=== PATIENT | male | born 1980 | race Caucasian/White ===

== ENCOUNTER 2017-02-07 18:48 | Emergency (ER) | payer BC ==
[2017-02-07 19:01] VITALS: BP 120/66
--- NOTE | 2017-02-07 19:20 | UC ---
Upper Extremity HPI - HPI Summary HPI Summary: 36 female presents with complaints of right shoulder pain/injury that has been on going since an injury that he sustained on 02/04/17. States he was chopping up and folding a boat they were getting rid of when it snapped back hitting him in the back of right shoulder. Went to [facility] where he had an x-ray told it was a sprain and left. [place] he was not treated appropriately. States he is still having pain and is not able to lift his shoulder without pain. Denies numbness/tingling and any other injuries. Bruising and swelling has resolved. Has been wearing sling and taking percocet for pain as needed. Has continued to work and not rested. No ortho referral. No PMHx. - History of Current Complaint Chief Complaint: UCUpperExtremity Stated Complaint: RIGHT SHOULDER INJURY Time Seen by Provider: 02/07/17 19:13 Hx Obtained From: Patient Onset/Duration: Sudden Onset, Lasting Days, Still Present Severity Initially: Moderate Severity Currently: Moderate Pain Intensity: 2 Pain Scale Used: 0-10 Numeric Location Of Pain: Is Discrete @ - right shoulder Character: Sharp, Aching Aggravating Factor(s): Movement, Lifting, Flexion, Extension Alleviating Factor(s): Other: - percocet gives some relief and rest, not moving Associated Signs And Symptoms: Positive: Negative Related History: Dominant Hand Right - Allergies/Home Medications Allergies/Adverse Reactions: Allergies Allergy/AdvReac Type Severity Reaction Status Date / Time Penicillins Allergy Unknown Verified 02/07/17 19:01 Reaction Details Home Medications: Home Medications oxyCODONE/Acetamin 5/325 MG* [Percocet 5/325 TAB*] 1 tab PO Q6H PRN 02/07/17 [ History Confirmed 02/07/17] PMH/Surg Hx/FS Hx/Imm Hx - Additional Past Medical History Additional PMH: no dm, htn or asthma - Surgical History Surgical History: Yes Surgery Procedure, Year, and Place: LLE SX USING MUSCLE FROM PT'S BACK. - Social History Alcohol Use: None Substance Use Type: None Smoking Status (MU): Current Every Day Smoker Type: Cigarettes Amount Used/How Often: 1/2 PPD Length of Time of Smoking/Using Tobacco: 16 Have You Smoked in the Last Year: Yes Review of Systems Constitutional: Negative Skin: Negative ENT: Negative Respiratory: Negative Motor: Decreased ROM Neurovascular: Negative Musculoskeletal: Arthralgia, Myalgia - right shoulder, anterior Neurological: Negative All Other Systems Reviewed And Are Negative: Yes Physical Exam Triage Information Reviewed: Yes Appearance: Well-Appearing, No Pain Distress, Well-Nourished Vital Signs: Initial Vital Signs Temp 99.1 F 02/07/17 18:56 Pulse 72 02/07/17 18:56 Resp 16 02/07/17 18:56 BP 120/66 02/07/17 18:56 Pulse Ox 97 02/07/17 18:56 Vital Signs Reviewed: Yes Eyes: Positive: Conjunctiva Clear ENT: Positive: Hearing grossly normal Neck: Positive: Supple, Nontender Respiratory: Positive: Chest non-tender, Lungs clear, Normal breath sounds, No respiratory distress, No accessory muscle use Cardiovascular: Positive: RRR, No Murmur, Pulses Normal - 2+ radial b/l, Brisk Capillary Refill Musculoskeletal: Positive: No Edema, Strength Limited @ - with flexion/ extension right shoulder, ROM Limited @ - right shoulder with all movement, able but painful, better with passive Neurological Exam: Normal Neurological: Positive: Alert - sensation intact and normal Skin Exam: Normal Skin: Positive: Other - no crepitus, step off, ecchymosis, edema or obvious signs of deformity. Diagnostics - Radiology shoulder/clavicle right Xray Interpretation: No Acute Changes - negative for dislocation or fracture Radiology Interpretation Completed By: ED Physician - Dr Mancia Upper Extremity Course/Dx - Course Course Of Treatment: given pain managment. continue at home. supplement with ibuprofen for next couple of days. RICE and follow up ortho. repeat x-rays obtained due to patient request and worsening pain. negative. aware of worsening signs and symptoms. - Differential Dx/Diagnosis Differential Diagnosis/HQI/PQRI: Contusion, Hematoma, Strain, Sprain Provider Diagnoses: right shoulder sprain Discharge - Discharge Plan Condition: Stable Disposition: HOME Prescriptions: HYDROcodone/ACETAMIN 5-325 MG* [[place] 5-325 TAB*] 1 tab PO Q4H PRN #12 tab MDD 4 PRN Reason: Pain Patient Education Materials: Shoulder Sprain (ED) Forms: *Work Release Referrals: Cameron Gallegos MD [Medical Doctor] - Additional Instructions: Take prescribed medication to help with pain. Supplement in between with ibuprofen 800mg every 8 hours, with food. Rest, ice and elevate. Use sling and refrain from using. Follow up and make an appointment with Orthopedics. IF symptoms worsen or new symptoms develop please seek medical attention sooner.
[2017-02-07] MEDS ORDERED: HYDROcodone/ACETAMIN 5-325 MG* 1 TAB PO ONE (20:02)
--- NOTE | 2017-02-07 20:53 | RAD ---
Indication: Right shoulder injury. 3 views of the right shoulder demonstrates no definite fracture. Joint spaces well-preserved. Surgical clips are noted in the right axilla. Clinical correlation is suggested. IMPRESSION: No fracture of the right shoulder is noted. No dislocation is noted. Surgical clips in the right axilla for which clinical correlation is suggested.
--- NOTE | 2017-02-07 20:54 | RAD ---
Indication: Right clavicle injury. 2 views of the right clavicle demonstrates no fracture. No dislocation is noted. IMPRESSION: No fracture of the right clavicle is noted.
== END 2017-02-07 20:37 | disposition home or self-care (01) ==
LOC: UCCORT 18:48
DX: S43.401A Unspecified sprain of right shoulder joint, initial encounter (principal); W20.8XXA Other cause of strike by thrown, projected or falling object, initial encounter
CPT/HCPCS: 99202; G0463